=== PATIENT | male | born 1970 | race Caucasian/White ===

== ENCOUNTER 2023-06-25 17:32 | Emergency (ER) | payer OTHER, SELFPAY ==
--- NOTE | ~2023-06-25 | CT_ITS ---
EXAMINATION: CT ABDOMEN AND PELVIS WITHOUT CONTRAST CLINICAL INFORMATION: Abdominal pain, flank pain, kidney stones COMPARISON: None available. TECHNIQUE: Multidetector volumetric imaging was performed from the superior aspect of the liver through the pubic symphysis. Sagittal and coronal reformatted images were obtained on the technologist's workstation. This CT examination was performed using dose optimization techniques as appropriate, variously including the following: *Automated exposure control *Adjustment of mA and/or kV according to patient size (this includes techniques or standardized protocols for targeted exams where dose is matched to indication/reason for exam; i.e. extremities or head) *Use of iterative reconstruction technique DLP: 507 mGy-cm FINDINGS: LUNG BASES: The visualized lung bases are unremarkable. LIVER, GALLBLADDER, AND BILIARY TREE: The liver is normal in size, shape, and attenuation. No focal hepatic lesion or biliary ductal dilatation is present. The gallbladder is unremarkable with no evidence of radiopaque gallstones, gallbladder wall thickening, or obvious pericholecystic inflammatory changes. PANCREAS: Unremarkable. SPLEEN: Unremarkable. ADRENAL GLANDS: Unremarkable. KIDNEYS AND URETERS: The bilateral kidneys are normal in size shape and attenuation. There is mild right hydronephrosis and hydroureter secondary to a passed calculus which is just distal to the UVJ. This calculus measures 3 to 4 mm. Additionally, there are nonobstructing calculi in the bilateral kidneys which are punctate in the right upper pole and measuring 7 mm in the left lower pole. BLADDER: Decompressed. Past calculus near the right UVJ. GASTROINTESTINAL TRACT: The small and large bowel are unremarkable. The appendix is unremarkable. ABDOMINAL WALL: Tiny fat-containing umbilical hernia. LYMPH NODES: Normal. VASCULAR: Unremarkable. PELVIC VISCERA: Unremarkable. OSSEOUS STRUCTURES: Unremarkable. CT/CT abdomen pelvis wo IV con IMPRESSION: 1. Mild right hydronephrosis and hydroureter secondary to a passed calculus which is just distal to the UVJ. This calculus measures 3 to 4 mm. 2. Bilateral nonobstructing renal calculi. Fleischner guidelines were followed.
[2023-06-25 18:06] VITALS: BP 126/80; PULSE 77; RESP 20; TEMP 36.1; O2SAT 98; BMI 25.1
--- NOTE | 2023-06-25 18:09 | ED.GENADULT ---
HPI - General Adult General Chief complaint: Urogenital-Male Stated complaint: blood in urine, possible kidney stone Time Seen by Provider: 06/25/23 18:28 Source: patient and old records reviewed Mode of arrival: ambulatory Limitations: no limitations History of Present Illness HPI narrative: 52 yo male with PMH of h pylori and gastritis currently on treatment - reports prior lipoma surgery as well as recent dx of bilateral renal stones but no obstruction/hydronephrosis or ureteral stone seen on [facility] CT scan 06/19. His visit was done for abdominal pain. He presents today with c/o R flank pain n/v and hematuria. No fevers. MD complaint: flank pain hematuria Onset (ago): day(s) (this AM) Location: abdomen (flank) and right Radiation: non-radiation and back Severity: severe Quality: stabbing Pain Consistency: intermittent Relieving factors: none Exacerbating factors: none Associated symptoms: nausea/vomiting and other (hematuria) Treatments prior to arrival: none Related Data Previous Rx's ?Medication ?Instructions ?Recorded ondansetron 4 mg disintegrating 4 mg PO Q8H PRN nausea and 06/25/23 tablet vomiting #20 tabs tamsulosin 0.4 mg capsule 0.4 mg PO DAILY 5 days #5 caps 06/25/23 Allergies Allergy/AdvReac Type Severity Reaction Status Date / Time No Known Allergies Allergy Verified 06/25/23 18:08 Review of Systems Review of Systems: Constitutional : No Fever, No Chills ENT/Mouth : No sore throat Eyes: No Eye Pain, No Swelling, No Redness Cardiovascular : No Chest Pain, No SOB Respiratory : No Cough, No Sputum, No Wheezing Gastrointestinal : positive Nausea, positive Vomiting, No Diarrhea, positive abdominal pain Genitourinary : positive Dysuria, positive urinary frequency, positive Hematuria, positive Flank Pain Musculoskeletal : No joint pain, No Myalgias Skin : No Skin Lesions, No rash Neuro : No Weakness, No Numbness, No Headache Psych : No Anxiety/Panic, No Depression Heme/Lymph: No Bruising, No Lymphadenopathy Endocrine : No Polyuria, No Polydipsia All other systems reviewed and are negative [facility] Past Medical History Attestation statement: The following information was validated with the patient. Source: old records reviewed Medical History H. pylori infection Gastritis Social History Social History (Updated 06/25/23 @ 19:05 by Gina Anderson DO) Patient Tobacco Use Status: Tobacco use Unknown Advance Directives: No Advance Directives Information Provided: Yes Physical Exam ED Vital Signs: Vital Signs - 24 hr 06/25/23 18:06 06/25/23 18:50 06/25/23 20:16 Temperature 96.9 F 97.8 F 97.9 F Pulse Rate 77 72 81 Respiratory Rate 20 20 16 Blood Pressure 126/80 141/87 H 129/80 Pulse Oximetry 98 99 99 Oxygen Delivery Method Room Air Room Air Room Air BMI result Body Mass Index 25.1 Appearance: Alert. Oriented X3. No acute distress. Eyes: Pupils equal, round and reactive to light. ENT: Pharynx normal. Neck: Normal inspection. Neck supple. CVS: Normal heart rate and rhythm. Pulses normal. Respiratory: No respiratory distress. Breath sounds normal. Abdomen: Soft and mild R CVA ttp Skin: Skin warm and dry. Normal skin color. Normal skin turgor. Extremities: No lower extremity edema. Neuro: Oriented X 3. No motor deficit. No sensory deficit. Course Course Course Narrative: RME: 52-year-old male presents to ED for right flank pain. Patient has known kidney stones. Kidney stone [facility] at [facility]. Patient complains of hematuria. Patient has severe pain labs pain medication imaging ordered. Discussed this charge nurse to bring patient to the ED. Reevaluation(s) Reevaluation #1: accidentally discharged in error brought back for UA sample Dr. Epstein will follow up on it. Medications Administered Discontinued Medications Generic Name Dose Route Start Last Admin Trade Name Freq PRN Reason Stop Dose Admin Sodium Chloride 1,000 mls @ 999 mls/hr 06/25/23 18:07 06/25/23 20:16 Ns IV 06/25/23 19:07 Infused .Q1H1M STA Infusion Ketorolac Tromethamine 30 mg 06/25/23 18:07 06/25/23 18:12 Ketorolac Tromethamine 30 Mg/Ml Vial IM 06/25/23 18:08 30 mg ONCE ONE Administration Morphine Sulfate 4 mg 06/25/23 18:07 06/25/23 18:37 Morphine Sulfate 4 Mg/Ml Cartridge IVPUSH 06/25/23 18:08 4 mg ONCE ONE Administration Protocol Ondansetron HCl 4 mg 06/25/23 18:20 06/25/23 18:37 Ondansetron Hcl 4 Mg/2 Ml Vial IVPUSH 06/25/23 18:21 4 mg ONCE ONE Administration Medical Decision Making Medical Decision Making [facility] Narrative: 52 yo male with PMH of renal stones known L 4mm and R 2mm here with c/o abrupt onset R flank pain n/v and hematuria today at this time will need basic labs, UA and IV morphine/toradol ordered. UA and repeat imaging planned to see if stone has moved and patient is obstructed. Differential Diagnosis Differential Diagnoses: The differential diagnosis associated with the presentation includes renal colic, strain Admission/Observation Consideration of admission/observation: Escalation of care including admission/observation considered labs stable, passed stone, pain improved Lab Data [facility] Lab Attestation statement: I reviewed the patient's lab results. 06/25/23 18:29 06/25/23 18:29 Labs: Lab Results 06/25/23 Range/Units 18:29 WBC 9.2 (4.8-10.8) X10*3/uL RBC 5.06 (4.60-5.80) X10*6/uL Hgb 15.6 (14.0-18.0) g/dl Hct 46.2 (42.0-52.0) % MCV 91.3 (80.0-98.0) fL MCH 30.8 (27.0-33.0) pg MCHC 33.8 (31.0-36.0) g/dl RDW 13.2 (11.0-16.0) % Plt Count 289 (160-400) X10*3/uL MPV 10.1 (9.4-12.4) fL Immature Gran % (Auto) 0.8 H (0.0-0.4) % Neut % (Auto) 68.2 (45-73) % Lymph % (Auto) 20.9 (20-40) % Casey % (Auto) 8.6 (2-11) % Eos % (Auto) 1.1 (0-4) % Baso % (Auto) 0.4 (0-2) % Lymph # (Auto) 1.9 (1.2-4.9) X10*3/uL Casey # (Auto) 0.8 (0.1-1.2) X10*3/uL Eos # (Auto) 0.1 (0.0-0.4) X10*3/uL Baso # (Auto) 0.0 (0.0-0.2) X10*3/uL Abs Immat Gran (auto) 0.07 H (0.00-0.03) X10*3/uL Absolute Neuts (auto) 6.2 (2.0-8.3) x10*3/uL Absolute Nucleated RBC 0.000 (0.0-0.012) X10*3/uL Nucleated RBC % (auto) 0.0 (0.0-0.2) /100WBC Sodium 141 (135-145) mmol/L Potassium 3.6 (3.3-5.1) mmol/L Chloride 107 (96-108) mmol/L Carbon Dioxide 26 (22-29) mmol/L Anion Gap 12 (12-20) BUN 13 (9-16) mg/dL Creatinine 1.06 (0.5-1.4) mg/dL Estim Creat Clear Calc 84.8 Estimated GFR > 60 Random Glucose 194 H (60-115) mg/dL Calcium 9.1 (8.4-10.2) mg/dL Total Bilirubin 0.5 (0.0-1.0) mg/dL AST 23 (5-37) U/L ALT 22 (0-40) U/L Alkaline Phosphatase 104 (39-117) U/L Total Protein 6.9 (6.5-8.0) g/dL Albumin 3.8 (3.5-5.0) g/dL Independent Interpretation I performed an independent interpretation of an: CT Scan (passed stone) Radiology Impression Discussion of test interpretation with radiology: I have reviewed the radiologist's reading. Independent Historian Clinical information obtained from an independent historian. History obtained from or confirmed by: Friend External Record Review External record reviewed: Outpatient record and Prior outpatient radiology Critical Care Time Critical Care Time Critical Care Time: Yes Total Critical Care Time: 35 Attestation: pain improved with IV morphine, review of outside records I attest to this time spent taking care of the patient Discharge Plan Discharge Clinical Impression: Bilateral renal colic Patient Disposition: Home, Self-Care Instructions: Renal Colic (ED) Additional Instructions: you passed a stone on the right side. you still have L sided kidney stones you need to see your doctor at [facility] to get referral to urologist or see our urologist. Please call to schedule appointment. stay hydrated drink plenty of fluids. return for worsening pain, fevers, vomiting or any other concerns. Prescriptions: New ondansetron 4 mg tablet,disintegrating 4 mg PO Q8H PRN (Reason: nausea and vomiting) Qty: 20 0RF tamsulosin 0.4 mg capsule 0.4 mg PO DAILY 5 Days Qty: 5 0RF Referrals: Finn Meyer MD [Physician] - (our urologist can follow up and make appointment or go to [facility]) Stand Alone Forms: Work/School Release Interventions: ED Discharge Assessment Last Done: 06/25/23 20:16 Print Language: Egyptian
[2023-06-25] MEDS: Ketorolac Tromethamine 30 MG/ML VIAL IM (18:12)
[2023-06-25 18:34] LABS: MANUAL DIFF FLAG NO
[2023-06-25] MEDS: ondansetron HCL 4 MG/2 ML VIAL IVPUSH (18:37)
[2023-06-25] MEDS: 0.9 % Sodium Chloride 1,000 ML 999 ML IV (18:37)
[2023-06-25] MEDS: Morphine Sulfate 4 MG/ML CARTRIDGE IVPUSH (18:37)
[2023-06-25 18:48] LABS: Alanine Aminotransferase 22 U/L (0-40); Albumin Level 3.8 g/dL (3.5-5.0); Alkaline Phosphatase 104 U/L (39-117); Anion Gap 12 (12-20); Aspartate Amino Transferase 23 U/L (5-37); Bilirubin Total 0.5 mg/dL (0.0-1.0); Blood Urea Nitrogen 13 mg/dL (9-16); Calcium 9.1 mg/dL (8.4-10.2); Carbon Dioxide 26 mmol/L (22-29); Chloride 107 mmol/L (96-108); Creatinine Clr Calc Pharmacy 84.8; Estimated Glomerular Filt Rate > 60; Glucose Random 194 mg/dL (60-115); Potassium 3.6 mmol/L (3.3-5.1); Sodium 141 mmol/L (135-145); Total Protein 6.9 g/dL (6.5-8.0)
[2023-06-25 18:50] VITALS: BP 141/87; PULSE 72; RESP 20; TEMP 36.6; O2SAT 99
[2023-06-25 18:51] LABS: Basophils Percent Auto 0.4 % (0-2); Eosinophils Absolute Auto 0.1 X10*3/uL (0.0-0.4); Eosinophils Percent Auto 1.1 % (0-4); Hematocrit 46.2 % (42.0-52.0); Hemoglobin 15.6 g/dl (14.0-18.0); Imm Gran Abs Auto 0.07 X10*3/uL (0.00-0.03); Imm Gran Pct Auto 0.8 % (0.0-0.4); Lymphocytes Absolute Auto 1.9 X10*3/uL (1.2-4.9); Lymphocytes Percent Auto 20.9 % (20-40); Mean Corpuscular HGB Conc 33.8 g/dl (31.0-36.0); Mean Corpuscular Hemoglobin 30.8 pg (27.0-33.0); Mean Corpuscular Volume 91.3 fL (80.0-98.0); Mean Platelet Volume 10.1 fL (9.4-12.4); Monocytes Absolute Auto 0.8 X10*3/uL (0.1-1.2); Monocytes Percent Auto 8.6 % (2-11); Neutrophils Absolute Auto 6.2 x10*3/uL (2.0-8.3); Neutrophils Percent Auto 68.2 % (45-73); Platelet Count 289 X10*3/uL (160-400); Red Blood Count 5.06 X10*6/uL (4.60-5.80); Red Cell Distribution Width 13.2 % (11.0-16.0); White Blood Count 9.2 X10*3/uL (4.8-10.8)
--- NOTE | 2023-06-25 19:00 | PC.NURSE ---
IV established, labs obtained and sent. medicated per the MAR - fluids infusing. will re-attempt ct scan pending medications
[2023-06-25 20:16] VITALS: BP 130/77; PULSE 75; RESP 18; TEMP 36.5; O2SAT 99
--- NOTE | 2023-06-25 20:50 | PC.NURSE ---
patient awake and alert. skin pwd, resp even and non labored, speaking in full, clear sentences. reports flank pain is improved. aware of need for urine sample.
[2023-06-25 22:03] LABS: Appearance Urine Cloudy; Color Urine Orange; Glucose Urine UA Negative (Negative); Leukocyte Esterase Urine Small (1+) (Negative); Nitrite Urine Negative (Negative); PH 5.5 (5.0-9.0); Specific Gravity - Urine 1.015 (1.005-1.025); UMIC TRIGGER UACC YES; Urine Blood Large (3+) (Negative); Urine Ketones Trace mg/dL (Negative); Urine Protein 100 (2+) mg/dL (Neg-Trace)
[2023-06-25 22:05] LABS: Bacteria Urine None Seen (None Seen); Calcium Oxalate Crystals Urine Present; RBC Urine >20 /HPF (0-2); Squamous Epithelial Cell Urine 0-2 /HPF (0-2); UACC Culture Trigger YES
[2023-06-25] MEDS: cefuroxime axetiL 250 MG TABLET PO (22:32)
[2023-06-25] MEDS: Calcium Carbonate 750 MG TAB.CHEW PO (22:49)
[2023-06-25 23:01] VITALS: BP 130/77; PULSE 75; RESP 18; TEMP 36.5; O2SAT 99
== END 2023-06-25 23:01 | disposition home or self-care (01) ==
PROVIDERS: Physician Assistant; Emergency Provider Emergency Medicine; PCP Internal Medicine
DX: N23 Unspecified renal colic (principal); Z87.442 Personal history of urinary calculi
CPT/HCPCS: 36415; 74176; 80053; 81001; 81003; 85025; 87086; 96361; 96372; 96374; 96375; 99284; 99285; J1885; J2270; J2405

== ENCOUNTER 2024-04-29 01:00 | Emergency (ER) | payer OTHER, SELFPAY ==
--- NOTE | ~2024-04-29 | CT_ITS ---
EXAMINATION: CT ABDOMEN PELVIS WITHOUT IV CONTRAST HISTORY: left flank pain, hx stones COMPARISON: Comparison is made with the prior examination dated 06/25/2023. TECHNIQUE: CT scan of the abdomen and pelvis was performed without contrast using standard departmental protocol. Coronal and sagittal reformatted images were generated and reviewed. Oral contrast material was not administered per department protocol. This CT exam was performed with one or more of the following dose reduction techniques: automated exposure control, adjustment of the mA and/or kV according to patient size, use of iterative reconstruction technique. DLP: 443 mGy-cm FINDINGS: LOWER CHEST: The visualized lung bases are clear. There is no pleural effusion. CARDIOVASCULATURE: The heart is normal in size. There is no pericardial effusion. LIVER: The liver is normal in size and contour. The liver has an unremarkable unenhanced appearance. GALLBLADDER / BILE DUCTS: The gallbladder is unremarkable. There is no intra or extrahepatic biliary ductal dilatation. SPLEEN: The spleen is normal in size and has an unremarkable unenhanced appearance. PANCREAS: The pancreas has an unremarkable unenhanced appearance. ADRENAL GLANDS: Unremarkable. KIDNEYS/RETROPERITONEUM: There is a punctate nonobstructing calculus at the upper pole of the right kidney. There is a 6 mm nonobstructing calculus at the lower pole of the left kidney. There is no hydronephrosis or hydroureter. No ureteral calculi are identified. LYMPH NODES: No retroperitoneal lymphadenopathy is identified in the abdomen or pelvis. VASCULATURE: The abdominal aorta is normal in caliber. MESENTERY/PERITONEUM: No free fluid. No masses. There is no free intraperitoneal gas. STOMACH: There is a moderate hiatal hernia. SMALL BOWEL: The small bowel is normal in caliber. COLON: There is diffuse colonic diverticulosis without evidence of diverticulitis. There is a large amount of stool throughout the colon. APPENDIX: Normal. URINARY BLADDER/PELVIC ORGANS: The urinary bladder is unremarkable. The prostate is normal in size. BONES / SOFT TISSUES: No suspicious bony or soft tissue abnormalities. CT/CT abdomen pelvis wo IV con IMPRESSION: 1. Bilateral nephrolithiasis as described, without evidence of ureteral obstruction. 2. Moderate hiatal hernia. 3. Colonic diverticulosis without evidence of diverticulitis. Large amount of stool throughout the colon. Electronically signed by: Deven Davila MD 04/29/2024 09:43 AM EST
[2024-04-29 01:08] VITALS: BP 125/82; PULSE 74; RESP 16; TEMP 36.6; O2SAT 98; BMI 25.9
[2024-04-29 01:29] LABS: Basophils Percent Auto 0.5 % (0-2); Eosinophils Absolute Auto 0.2 X10*3/uL (0.0-0.4); Eosinophils Percent Auto 2.4 % (0-4); Hemoglobin 15.7 g/dl (14.0-18.0); Imm Gran Abs Auto 0.02 X10*3/uL (0.00-0.03); Imm Gran Pct Auto 0.2 % (0.0-0.4); Lymphocytes Absolute Auto 3.2 X10*3/uL (1.2-4.9); Lymphocytes Percent Auto 36.4 % (20-40); MANUAL DIFF FLAG NO; Mean Corpuscular HGB Conc 33.4 g/dl (31.0-36.0); Mean Corpuscular Hemoglobin 30.7 pg (27.0-33.0); Mean Platelet Volume 9.9 fL (9.4-12.4); Monocytes Absolute Auto 1.1 X10*3/uL (0.1-1.2); Monocytes Percent Auto 12.4 % (2-11); Neutrophils Absolute Auto 4.2 x10*3/uL (2.0-8.3); Neutrophils Percent Auto 48.1 % (45-73); Platelet Count 261 X10*3/uL (160-400); Red Blood Count 5.11 X10*6/uL (4.60-5.80); Red Cell Distribution Width 13.3 % (11.0-16.0); White Blood Count 8.8 X10*3/uL (4.8-10.8)
[2024-04-29 01:53] LABS: Alanine Aminotransferase 19 U/L (0-40); Albumin Level 3.9 g/dL (3.5-5.0); Alkaline Phosphatase 90 U/L (39-117); Anion Gap 10 (12-20); Aspartate Amino Transferase 16 U/L (5-37); Bilirubin Total 0.3 mg/dL (0.0-1.0); Blood Urea Nitrogen 17 mg/dL (9-16); Carbon Dioxide 24 mmol/L (22-29); Chloride 113 mmol/L (96-108); Creatinine Clr Calc Pharmacy 86.3; Estimated Glomerular Filt Rate > 60; Glucose Random 104 mg/dL (60-115); Potassium 4.4 mmol/L (3.3-5.1); Sodium 143 mmol/L (135-145)
[2024-04-29 04:44] VITALS: BP 107/65; PULSE 66; RESP 18; TEMP 36.2; O2SAT 98
[2024-04-29 05:23] LABS: Appearance Urine Clear; Color Urine Yellow; Glucose Urine UA Negative (Negative); Leukocyte Esterase Urine Negative (Negative); Nitrite Urine Negative (Negative); PH 5.5 (5.0-9.0); Specific Gravity - Urine 1.025 (1.005-1.025); Urine Blood Negative (Negative); Urine Ketones Negative (Negative); Urine Protein Negative (Neg-Trace)
[2024-04-29 05:28] LABS: Bacteria Urine None Seen (None Seen); Hyaline Casts Urine 0-2 /LPF (0-2); RBC Urine 0-2 /HPF (0-2); Squamous Epithelial Cell Urine 0-2 /HPF (0-2); WBC Urine 0-5 /HPF (0-5)
[2024-04-29 06:00] VITALS: BP 108/75; PULSE 69; RESP 16; TEMP 36.5; O2SAT 99
--- NOTE | 2024-04-29 06:47 | ED_ITS ---
HPI - General Adult General Chief complaint: General Medical Stated complaint: kidney pain Time Seen by Provider: 04/29/24 06:42 Source: patient and certified court interpreter ([facility] [place] german) Mode of arrival: ambulatory Limitations: language barrier (german) History of Present Illness ED Provider: HARRIS WOODS PA-C HPI narrative: 53 year old Dutch speaking male with pmhx significant for gastritis and nephrolithiasis presents to the ED today for evaluation of left lower back pain x2 years. Reports pain is more prominent after he returns home from work. 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 Pain is worse with movement. No radiation Denies trauma/ injury to the back. No hx of IVDU. No hx of spinal surgery. He has not trialed any OTC pain medications for this. He does endorse history of renal stones to left kidney. He has since followed with urology. These stones did not require removal via shockwave therapy or surgery. He denies any urine symptoms. Denies fever, chills, N/V, abd pain, constipation, diarrhea. Related Data Previous Rx's ?Medication ?Instructions ?Recorded cefuroxime axetil 250 mg tablet 250 mg PO BID #19 tabs 06/25/23 ondansetron 4 mg disintegrating 4 mg PO Q8H PRN nausea and 06/25/23 tablet vomiting #20 tabs tamsulosin 0.4 mg capsule 0.4 mg PO DAILY 5 days #5 caps 06/25/23 docusate sodium 100 mg capsule 100 mg PO DAILY #10 caps 04/29/24 (Dulcolax Stool Softener (docusate)) lidocaine 5 % topical patch 1 patch topical DAILY #15 ea 04/29/24 (Lidoderm) polyethylene glycol 3350 17 gram 17 g PO DAILY PRN constipation #14 04/29/24 oral powder packet (Miralax) ea Allergies Allergy/AdvReac Type Severity Reaction Status Date / Time No Known Allergies Allergy Verified 04/29/24 01:10 Review of Systems 2 Review of Systems: Constitutional: No fever, chills, fatigue, night sweats, weight changes ENT/Mouth: No ear pain, hearing loss, nasal congestion, sinus pain, rhinorrhea, sore throat Eyes: No eye pain, swelling, redness, vision changes, discharge Cardio: No chest pain, palpitations, MOREIRA, orthopnea, peripheral edema Pulm: No SOB, cough, sputum, wheezing, dyspnea, hemoptysis GI: No nausea, vomiting, hematemesis, abdominal pain, diarrhea, constipation, hematochezia, melena : No irregular bleeding, dysuria, frequency, urgency, hesitancy, hematuria, flank pain, urinary flow changes, urinary incontinence or retention MSK: No neck pain, joint pain, myalgias, +back pain Skin: No lesions, rashes Neuro: No weakness, numbness, paresthesias, LOC, dizziness, headache Psych: No anxiety/panic, depression, SI/HI, AH/VH All other systems reviewed and are negative. [facility] Past Medical History Attestation statement: The following information was validated with the patient. Source: old records reviewed and nursing notes reviewed Medical History H. pylori infection Gastritis Social History Social History Patient Tobacco Use Status: Tobacco use Unknown Advance Directives: No Advance Directives Information Provided: Yes Do you have a plan to hurt others: No Plan Physical Exam ED Vital Signs: Vital Signs - 24 hr 04/29/24 01:08 04/29/24 04:44 04/29/24 06:00 Temperature 97.8 F 97.2 F 97.7 F Pulse Rate 74 66 69 Respiratory Rate 16 18 16 Blood Pressure 125/82 107/65 108/75 Pulse Oximetry 98 98 99 Oxygen Delivery Method Room Air Room Air Room Air 04/29/24 09:23 Temperature 98.4 F Pulse Rate 57 Respiratory Rate 18 Blood Pressure 113/78 Pulse Oximetry 98 Oxygen Delivery Method Room Air BMI result Body Mass Index 25.9 vital signs stable, afebrile General: Well appearing, in no acute distress. Skin: Warm, dry, intact. No rashes or lesions. Head: Normocephalic, atraumatic. EENT: Hearing is intact b/l. Conjunctiva clear. PERRLA. EOM intact. Moist mucous membranes.? Neck: Supple without LAD Cardiac: Chest wall symmetric. RRR. Lungs: Normal respiratory effort without accessory muscle use. CTA bilaterally. Abdomen: Soft, non-tender, non-distended. No rebound tenderness or guarding. Positive BS x4. no cvat. Back: +Tender to palpation along left lumbar paraspinal region. No palpable deformity, fluctuance. No midline spinous tenderness or step-off deformity. Ext: Upper and lower extremities atraumatic, without tenderness, deformity, swelling or erythema Neuro: AOx3. Normal speech.Strength 5/5 intact throughout. No saddle anesthesia. Sensation intact to light touch. NV intact distally. Ambulating with steady gait. Course Course Course Narrative: 1010 -- CBC without leukocytosis or left shift. No anemia. H&H stable. Chemistry without acute electrolyte abnormality requiring intervention. BUN slightly elevated to 17 however creatinine is WNL. No FIDELIA. Liver function at baseline. Urinalysis does not demonstrate infection or blood. CT abdomen/pelvis shows punctate nonobstructing calculus at the upper pole of the right kidney and a 6 mm nonobstructing calculus at the lower pole of the left kidney. There is no evidence of hydronephrosis or hydroureter. No ureteral calculi noted. Incidental finding of colonic diverticulosis without evidence of acute diverticulitis with large amount of stool throughout the colon. > given length of symptoms, left renal calculi likely not the cause of patient's current discomfort. his pain is not colicy and is worse with movement of the back with tenderness along the left lumbar paraspinal muscles rather than left CVA. there is no evidence of obstructing stone or hydro. will treat for musculoskeletal pain. He was given a dose of Toradol in the ED today with improvement in pain. Advised Tylenol/Motrin at home. Will also send lidocaine patches. > he is also quite constipated. advised miralax and colace which has been sent to the pharmacy. > regarding nephrolithiasis, advised to follow up with his urologist. I do not feel as though tamsulosin or prednisone is warranted at this time. Patient has remained stable throughout ED visit today. Discussed worrisome signs and symptoms and when to return to the ED. All questions answered at this time. Patient is agreeable with disposition and stable for discharge. Medications Administered Discontinued Medications Generic Name Dose Route Start Last Admin Trade Name Freq PRN Reason Stop Dose Admin Ketorolac Tromethamine 30 mg 04/29/24 07:59 04/29/24 08:36 Ketorolac Tromethamine 30 Mg/Ml Vial IM 04/29/24 08:00 30 mg ONCE ONE Administration Medical Decision Making Medical Decision Making [facility] Narrative: 53 year old Dutch speaking male with pmhx significant for gastritis and nephrolithiasis presents to the ED today for evaluation of left lower back pain x2 years. Vitals stable. Afebrile. He is nontoxic-appearing and in no acute distress. Lying comfortably on the exam bed. Exam is quite benign. Abdomen is soft, ND/NT, without rebound or guarding. there are normoactive BS. no cvat. on spinal exam, there is no midline spinous tenderness or step-off deformity. There is reproducible tenderness to palpation of left lumbar paraspinal muscle region without palpable deformity or fluctuance. CMS intact distally. Ambulating with steady gait. No back pain red flag symptoms. Differential diagnosis includes msk sprain/ strain, sciatica, UTI, renal colic, nephrolithiasis, hydronephrosis, constipation. Unlikely pyelonephritis, obstructive uropathy, cauda equina, Guillain-Gilberts, epidural abscess, cord compression. Plan for basic labs, urinalysis, CTA/P, pain control and re-evaluation. Differential Diagnosis Differential Diagnoses: The differential diagnosis associated with the presentation includes as above. Admission/Observation not indicated. Lab Data [facility] Lab Attestation statement: I reviewed the patient's lab results. as above. 04/29/24 01:23 04/29/24 01:23 Labs: Lab Results 04/29/24 04/29/24 Range/Units 01:23 05:11 WBC 8.8 (4.8-10.8) X10*3/uL RBC 5.11 (4.60-5.80) X10*6/uL Hgb 15.7 (14.0-18.0) g/dl Hct 47.0 (42.0-52.0) % MCV 92.0 (80.0-98.0) fL MCH 30.7 (27.0-33.0) pg MCHC 33.4 (31.0-36.0) g/dl RDW 13.3 (11.0-16.0) % Plt Count 261 (160-400) X10*3/uL MPV 9.9 (9.4-12.4) fL Immature Gran % (Auto) 0.2 (0.0-0.4) % Neut % (Auto) 48.1 (45-73) % Lymph % (Auto) 36.4 (20-40) % [place] % (Auto) 12.4 H (2-11) % Eos % (Auto) 2.4 (0-4) % Baso % (Auto) 0.5 (0-2) % Lymph # (Auto) 3.2 (1.2-4.9) X10*3/uL [place] # (Auto) 1.1 (0.1-1.2) X10*3/uL Eos # (Auto) 0.2 (0.0-0.4) X10*3/uL Baso # (Auto) 0.0 (0.0-0.2) X10*3/uL Abs Immat Gran (auto) 0.02 (0.00-0.03) X10*3/uL Absolute Neuts (auto) 4.2 (2.0-8.3) x10*3/uL Absolute Nucleated RBC 0.000 (0.0-0.012) X10*3/uL Nucleated RBC % (auto) 0.0 (0.0-0.2) /100WBC Sodium 143 (135-145) mmol/L Potassium 4.4 D (3.3-5.1) mmol/L Chloride 113 H (96-108) mmol/L Carbon Dioxide 24 (22-29) mmol/L Anion Gap 10 L (12-20) BUN 17 H (9-16) mg/dL Creatinine 1.03 (0.5-1.4) mg/dL Estim Creat Clear Calc 86.3 Estimated GFR > 60 Random Glucose 104 (60-115) mg/dL Calcium 9.0 (8.4-10.2) mg/dL Total Bilirubin 0.3 (0.0-1.0) mg/dL AST 16 (5-37) U/L ALT 19 (0-40) U/L Alkaline Phosphatase 90 (39-117) U/L Total Protein 7.0 (6.5-8.0) g/dL Albumin 3.9 (3.5-5.0) g/dL Urine Color Yellow Urine Appearance Clear Urine pH 5.5 (5.0-9.0) Ur Specific [place] 1.025 (1.005-1.025) Urine Protein Negative (Neg-Trace) mg/dL Urine Glucose (UA) Negative (Negative) mg/dL Urine Ketones Negative (Negative) mg/dL Urine Blood Negative (Negative) Urine Nitrite Negative (Negative) Ur Leukocyte Esterase Negative (Negative) Urine RBC 0-2 (0-2) /HPF Urine WBC 0-5 (0-5) /HPF Ur Squamous Epith Cells 0-2 (0-2) /HPF Urine Bacteria None Seen (None Seen) Hyaline Casts 0-2 (0-2) /LPF Independent Interpretation I performed an independent interpretation of an: CT Scan Interpretation: CT A/P showing b/l renal stones, no obvious ureteral stone Radiology Impression Discussion of test interpretation with radiology: I have reviewed the radiologist's reading. Radiologist Impression: Procedure(s): CT abdomen pelvis wo IV con Accession Number(s): [id number] cc: Physician,Unknown ; Harris Woods~ Report Number: [id number]: Total DLP = 443.00 mGy-cm EXAMINATION: CT ABDOMEN PELVIS WITHOUT IV CONTRAST HISTORY: left flank pain, hx stones COMPARISON: Comparison is made with the prior examination dated 06/25/2023. TECHNIQUE: CT scan of the abdomen and pelvis was performed without contrast using standard departmental protocol. Coronal and sagittal reformatted images were generated and reviewed. Oral contrast material was not administered per department protocol. This CT exam was performed with one or more of the following dose reduction techniques: automated exposure control, adjustment of the mA and/or kV according to patient size, use of iterative reconstruction technique. DLP: 443 mGy-cm FINDINGS: LOWER CHEST: The visualized lung bases are clear. There is no pleural effusion. CARDIOVASCULATURE: The heart is normal in size. There is no pericardial effusion. LIVER: The liver is normal in size and contour. The liver has an unremarkable unenhanced appearance. GALLBLADDER / BILE DUCTS: The gallbladder is unremarkable. There is no intra or extrahepatic biliary ductal dilatation. SPLEEN: The spleen is normal in size and has an unremarkable unenhanced appearance. PANCREAS: The pancreas has an unremarkable unenhanced appearance. ADRENAL GLANDS: Unremarkable. KIDNEYS/RETROPERITONEUM: There is a punctate nonobstructing calculus at the upper pole of the right kidney. There is a 6 mm nonobstructing calculus at the lower pole of the left kidney. There is no hydronephrosis or hydroureter. No ureteral calculi are identified. LYMPH NODES: No retroperitoneal lymphadenopathy is identified in the abdomen or pelvis. VASCULATURE: The abdominal aorta is normal in caliber. MESENTERY/PERITONEUM: No free fluid. No masses. There is no free intraperitoneal gas. STOMACH: There is a moderate hiatal hernia. SMALL BOWEL: The small bowel is normal in caliber. COLON: There is diffuse colonic diverticulosis without evidence of diverticulitis. There is a large amount of stool throughout the colon. APPENDIX: Normal. URINARY BLADDER/PELVIC ORGANS: The urinary bladder is unremarkable. The prostate is normal in size. BONES / SOFT TISSUES: No suspicious bony or soft tissue abnormalities. CT/CT abdomen pelvis wo IV con IMPRESSION: 1. Bilateral nephrolithiasis as described, without evidence of ureteral obstruction. 2. Moderate hiatal hernia. 3. Colonic diverticulosis without evidence of diverticulitis. Large amount of stool throughout the colon. Independent Historian Clinical information obtained from an independent historian. History obtained from or confirmed by: Spouse External Record Review External record reviewed: Inpatient record Prescription Management I considered prescription management with: Pain Medication and Other (MiraLax, Colace) Chronic Conditions Patient?s care impacted by: Other (nephrolithiasis) Social Determinants Patient?s care significantly limited by Social Determinants of Health including: Other Social Determinant of Health Critical Care Time Critical Care Time Critical Care Time: No Discharge Plan Discharge Clinical Impression: Bilateral nephrolithiasis, Constipation Patient Disposition: Home, Self-Care Instructions: Constipation (ED), Renal Colic (ED) Additional Instructions: Your blood work today is reassuring. Your urine does not demonstrate blood or infection. The CT scan of your abdomen shows nonobstructing stones in both right and left kidneys. I recommend you take 600mg ibuprofen every 6 hours or Tylenol 650mg every 6 hours as needed for pain. If needed, you can alternate these medications so that you take one medication every 3 hours. For example, at noon take ibuprofen, then at 3pm take Tylenol, then at 6pm take ibuprofen. I have also sent lidocaine patches to your pharmacy that you may apply to the area every 12 hours. Please follow up with your urologist. If you do not have 1, a referral has been provided. Please call them to establish care. They will not call you. The scan also shows significant stool burden in the colon. There is no evidence of obstruction. I recommend using stool softeners such as colace 100mg twice daily. Take the prescribed laxative (MiraLax) as directed. You may try milk of magnesia as well. Follow up with your doctor in 2 weeks. Return with new or worsening symptoms. In the case of an emergency call 911. Prescriptions: New polyethylene glycol 3350 [Miralax] 17 gram powder in packet 17 g PO DAILY PRN (Reason: constipation) Qty: 14 0RF docusate sodium [Dulcolax Stool Softener (dss)] 100 mg capsule 100 mg PO DAILY Qty: 10 0RF lidocaine [Lidoderm] 5 % adhesive patch,medicated 1 patch topical DAILY Qty: 15 0RF Rx Instructions: leave on most painful area for up to 12 hrs No Action ondansetron 4 mg tablet,disintegrating 4 mg PO Q8H PRN (Reason: nausea and vomiting) Qty: 20 0RF tamsulosin 0.4 mg capsule 0.4 mg PO DAILY 5 Days Qty: 5 0RF cefuroxime axetil 250 mg tablet 250 mg PO BID Qty: 19 0RF Referrals: [facility] [place] Urology Services [Provider Group] (6mm renal stone) Stand Alone Forms: Work/School Release Print Language: Dutch
[2024-04-29] MEDS: Ketorolac Tromethamine 30 MG/ML VIAL IM (08:36)
[2024-04-29 09:23] VITALS: BP 113/78; PULSE 57; RESP 18; TEMP 36.9; O2SAT 98
[2024-04-29 11:04] VITALS: BP 113/78; PULSE 57; RESP 18; TEMP 36.9; O2SAT 98
== END 2024-04-29 11:26 | disposition home or self-care (01) ==
PROVIDERS: Emergency Provider Emergency Medicine
DX: N20.0 Calculus of kidney (principal); K59.00 Constipation, unspecified; Z79.899 Other long term (current) drug therapy
CPT/HCPCS: 36415; 74176; 80053; 81001; 85025; 96372; 99284; J1885

== ENCOUNTER → 2024-04-29 07:59 | Outpatient (BNV) | payer OTHER, SELFPAY | PROVIDERS: Emergency Provider Emergency Medicine; Visit Provider Radiology Diagnostic Radiology | DX: N20.0 Calculus of kidney (principal); K57.90 Diverticulosis of intestine, part unspecified, without perforation or abscess without bleeding | CPT/HCPCS: 74176 ==

== ENCOUNTER 2024-06-24 15:19 | Outpatient (REF) | payer OTHER, SELFPAY ==
[2024-06-24 17:03] LABS: Urine Cytology See Pathology rpt
--- OUTSIDE RECORDS SUMMARY | 2024-06-24 19:01 | XMS_ITS | Clinical Summary ---
Author Organization [facility] it Address [address] [place] [address] Care Team Providers Care Software Developer Consultant Name Role Phone Elisa Mann MD Primary Care Provider [phone] Surgical History Surgery Date Site/Laterality Comments OTHER SURGICAL HISTORY PROCEDURE: DENIES PREVIOUS SURGERY COLONOSCOPY 09/27/2021 PROCEDURE: HISTORICAL COLONOSCOPY; COMMENT: hyperplastic polyp ESOPHAGOGASTRODUODENOSCOPY 02/02/2022 PROCEDURE: [place] EGD TRANSORAL BIOPSY SINGLE/MULTIPLE; COMMENT: hiatal hernia, [...] age to complete this topic Care Teams Software Developer Consultant Relationship Specialty Start Date End Date Elisa Mann MD PCP - General Internal Medicine 02/02/21
== END 2024-06-24 15:20 | disposition home or self-care (01) ==
LOC: HO.LNP 15:19
PROVIDERS: Visit Provider Nurse Practitioner Family
DX: N20.0 Calculus of kidney (principal); R10.9 Unspecified abdominal pain
CPT/HCPCS: 81003; 88112; 99202

== ENCOUNTER 2024-06-24 15:19 | Outpatient (AMB) | payer OTHER, SELFPAY ==
--- NOTE | 2024-06-24 15:23 | A.OFFVIS_ITS ---
Intake Visit Reasons: bilateral nephrolithiasis Intake Note: New Patient presents for initial visit for bilateral nephrolithiasis Urology Medications: none Blood Thinner: none Ship Boss Required: Yes Ship Boss Name: [id number] Accompanied by: Unknown Allergies No Known Allergies Allergy (Verified 06/24/24 16:14) Medication List - Last Reconciled 06/24/24 by CAITLIN Lemus No Known Home Meds HPI Comments Details: Yariel is a very pleasant 53-year-old Japanese-speaking male patient. He has a past medical history of H pylori and gastritis. He presents to the office today as a new patient for nephrolithiasis. In discussion with the patient today he reports a longstanding history of nephrolithiasis previously following up with urologist in [place] however does not recall name and or location. He discusses having recently seeked emergency room care here at [facility] at which time he was diagnosed with nephrolithiasis and recommendations were made for urology referral for further assessment evaluation. The CT results were reviewed with the patient today 05/13 there is a punctate nonobstructing calculus at the upper pole of the right kidney. There is a 6 mm nonobstructing calculus at the lower pole of the left kidney. There is no hydronephrosis noted bilaterally. When asked he does continue to report ongoing left-sided flank pain. We discussed further treatment options to include left-sided ESWL verses surveillance monitoring. Risks and benefits of these interventions were discussed. He otherwise denies any bothersome urinary issues. He denies urinary urgency, urinary frequency, incontinence, nocturia, hematuria, dysuria, foul smelling urine, changes to urinary stream, fever, and or chills. He is happy with his current voiding parameters. Plan Based on the evaluation of the ongoing nephrolithiasis with associated left renal colic, I offer the patient lithotripsy to manage his 6 mm stone on the left side, given its persistent symptoms. A detailed pamphlet on the procedure was provided. Preoperative clearance and insurance authorization are needed prior to scheduling on our noted procedural days. Preventative strategies emphasizing increased hydration were discussed. Patient was informed and verbally consented to the use of an ambient scribe for clinic note documentation during this visit. Discussion Notes During the visit, I discussed with the patient the presence of a 6 mm calculi on the left side, contributing to his symptoms. We reviewed the possibility of extracorporeal shock wave lithotripsy (lithotripsy) under anesthesia as a treatment option exceeding the natural passing of stones due to substantial pain. I detailed the procedural process, risks such as reaction to anesthesia, and postoperative expectations, and provided a pamphlet for further reading. I emphasized the significance of adequate hydration for stone prevention and addressed lifestyle adjustments to promote health, such as reduced consumption of alcohol and increasing water intake. Scheduling the procedure would require insurance authorization and preoperative clearance. [facility] Medical History H. pylori infection Gastritis Social History Patient Tobacco Use Status: Tobacco use Unknown Review of Systems Const All systems reviewed & are unremarkable except as noted in HPI and below Physical Exam Const General: cooperative, healthy appearing, comfortable, no acute distress, well developed, alert and awake Nutritional Appearance: average body habitus Orientation/consciousness: patient oriented x3 Limitations: language barrier HEENT Head: Yes normal to inspection, Yes normocephalic and Yes atraumatic Ears: hearing grossly normal bilaterally Eyes General: appearance normal, both eyes and all related structures Neck Neck: Yes normal visual inspection and Yes trachea midline Chest Chest palpation & inspection: normal inspection of the chest Resp Effort & Inspection: normal respiratory effort and able to speak in complete sentences Cardio Rate: regular rate GI Inspection: Yes normal to inspection General: Yes no CVA tenderness Back/Spine/Pelvis Back: no CVA tenderness Skin General skin exam: no rashes or lesions noted Neuro General: patient oriented x3 Extrem General: Yes normal to inspection Psych Appearance: grossly normal and well kempt Mental Status: mental status grossly normal Speech and movement: Normal speech and movement present and Clear speech present Affect: normal affect Attitude: cooperative Thought process: Normal thought process present Thought content: Normal thought content present Results AMB Urinalysis, Automated UA Leukoctes 0 Iban/uL Last Edit by Homar Robertson on 06/24/24 15:48 UA Nitrite Last Edit by Homar Robertson on 06/24/24 15:48 UA Urobilinogen 0.2 mg/dL Last Edit by Homar Robertson on 06/24/24 15:48 UA Protein 15 mg/dL Last Edit by Homar Robertson on 06/24/24 15:48 UA pH 6.0 Last Edit by Homar Robertson on 06/24/24 15:48 UA Blood 25 Tapan/uL Last Edit by Homar Robertson on 06/24/24 15:48 UA Specific [place] 1.030 Last Edit by Homar Robertson on 06/24/24 15:48 UA Ketone Last Edit by Homar Robertson on 06/24/24 15:48 UA Bilirubin 0 mg/dL Last Edit by Homar Robertson on 06/24/24 15:48 UA Glucose 0 mg/dL Last Edit by Homar Robertson on 06/24/24 15:48 Results Reviewed Results Reviewed: Laboratory Last Values Urine pH (Auto) 6.0 06/24/24 15:32 Specific [place] (Auto) 1.030 06/24/24 15:32 Urine Protein (Auto) 15 mg/dL 06/24/24 15:32 Glucose (UA)(Auto) 0 mg/dL 06/24/24 15:32 Urine Blood (Auto) 25 Tapan/uL 06/24/24 15:32 Urine Bilirubin (Auto) 0 mg/dL 06/24/24 15:32 Urine Urobilinogen (Auto) 0.2 mg/dL 06/24/24 15:32 Leukocyte Esterase (Auto) 0 Iban/uL 06/24/24 15:32 Date of Service: 04/29/24 Procedure(s): CT abdomen pelvis wo IV con FINDINGS: LOWER CHEST: The visualized lung bases are clear. There is no pleural effusion. CARDIOVASCULATURE: The heart is normal in size. There is no pericardial effusion. LIVER: The liver is normal in size and contour. The liver has an unremarkable unenhanced appearance. GALLBLADDER / BILE DUCTS: The gallbladder is unremarkable. There is no intra or extrahepatic biliary ductal dilatation. SPLEEN: The spleen is normal in size and has an unremarkable unenhanced appearance. PANCREAS: The pancreas has an unremarkable unenhanced appearance. ADRENAL GLANDS: Unremarkable. KIDNEYS/RETROPERITONEUM: There is a punctate nonobstructing calculus at the upper pole of the right kidney. There is a 6 mm nonobstructing calculus at the lower pole of the left kidney. There is no hydronephrosis or hydroureter. No ureteral calculi are identified. LYMPH NODES: No retroperitoneal lymphadenopathy is identified in the abdomen or pelvis. VASCULATURE: The abdominal aorta is normal in caliber. MESENTERY/PERITONEUM: No free fluid. No masses. There is no free intraperitoneal gas. STOMACH: There is a moderate hiatal hernia. SMALL BOWEL: The small bowel is normal in caliber. COLON: There is diffuse colonic diverticulosis without evidence of diverticulitis. There is a large amount of stool throughout the colon. APPENDIX: Normal. URINARY BLADDER/PELVIC ORGANS: The urinary bladder is unremarkable. The prostate is normal in size. BONES / SOFT TISSUES: No suspicious bony or soft tissue abnormalities. IMPRESSION: 1. Bilateral nephrolithiasis as described, without evidence of ureteral obstruction. 2. Moderate hiatal hernia. 3. Colonic diverticulosis without evidence of diverticulitis. Large amount of stool throughout the colon. Assessment & Plan Assessment & Plan (1) Nephrolithiasis: Code(s): N20.0 - Calculus of kidney Category: Medical (2) Flank pain: Code(s): R10.9 - Unspecified abdominal pain Category: Medical Plan: Plan Extracorporeal Shock Wave Lithotripsy We discussed the nature of the decision and reasonable alternatives for performing the above surgery. Interventions include chemical dissolution, ESWL, ureteroscopy with laser lithotripsy and stent placement, PCNL. ? Options such as medical therapy were discussed. The relative uncertainties and benefits related to each alternate procedure were adequately discussed. General surgical risks including, but not limited to, pain, bleeding, infection, myocardial infarction, pulmonary embolus, deep vein thrombosis and cerebrovascular accident which may result in further hospitaliz ation were discussed.? Full disclosure of the procedure as well as all major risks, benefits and complications were discussed including but not limited to risks of bleeding, injury to the kidney with hematoma or jennifer-hematoma, failure to fragments stone, potential for ureteric obstruction from stone passage and need for secondary procedures.? There is a small long-term risk of hypertension and a question mayito of diabetes.? Success rate of fragmentation and passage is approximately 70- 75%.? This is compared to the risks and benefits for ureteroscopy which has a higher success rate but is a more invasive procedure. The success rate of the procedure was discussed. Success of the procedure in the short-term does not necessarily guarantee that long-term success will be maintained. Suitable follow up will need to be maintained. The patient showed understanding of the discussion as well as the typical recovery time, and the outpatient nature of this procedure. Opportunity was given for questions. Repeat-back protocol used to confirm understanding. They wish to proceed with left ESWL Plan In office urinalysis results with the patient today; as noted above. Recent CT results with the patient today; as noted above. We discussed at length further treatment options of nephrolithiasis to include surveillance monitoring with near future metabolic workup as well as ESWL; risks and benefits were discussed. All questions were answered. He denies any bothersome urinary issues. Discussed, educated, and stressed the importance of adequate hydration relation to nephrolithiasis as well as overall health and well-being. Will schedule for left-sided ESWL Follow-up per doctor's orders; or sooner with any issues, concerns, and or ques tions. Orders: Orders Urine Cytology Today Z13.9 - Encounter for screening, unspecified AMB Urinalysis Automated Today Z13.9 - Encounter for screening, unspecified Medications: Discontinued ondansetron Discontinued Reason: Patient no longer taking 4 mg PO Q8H PRN 20 tabs 0RF nausea and vomiting tamsulosin Discontinued Reason: Patient no longer taking 0.4 mg PO DAILY 5 days 5 caps 0RF cefuroxime axetil Discontinued Reason: Patient no longer taking 250 mg PO BID 19 tabs 0RF polyethylene glycol 3350 (Miralax) Discontinued Reason: Patient no longer taking 17 grams PO DAILY PRN 14 ea 0RF constipation docusate sodium (Dulcolax Stool Softener (docusate)) Discontinued Reason: Patient no longer taking 100 mg PO DAILY 10 caps 0RF lidocaine 5% (Lidoderm) leave on most painful area for up to 12 hrs Discontinued Reason: Patient no longer taking 1 patch topical DAILY 15 ea 0RF Patient Instructions: The patient had an opportunity to ask questions regarding the treatment plan. All questions were answered. Physical exam, labs, and imaging were discussed and reviewed in detail. As well as risks, benefits, and discussion of treatment choices. No major barriers to understanding were identified. The patient expressed understanding and agreement with the above treatment plan. The patient was made aware they should contact our office by phone for worsening of their current condition, the appearance of new symptoms, or with any questions or concerns. Compliance is encouraged with any medications and follow up testing that is ordered. It is a privilege to be allowed the opportunity to participate in? your urological care.? Again, if you have any questions or concerns If you have any questions or concerns please do not hesitate to contact me. The office is [phone]. This note is constructed using voice recognition software. While every effort has been made to ensure accuracy board winder errors may have been included. Yours sincerely, CAITLIN Lemus Coding Level of Care Code New Pt Level 4 (62023) Diagnoses Nephrolithiasis N20.0 Flank pain R10.9
--- OUTSIDE RECORDS SUMMARY | 2024-06-24 18:16 | XMS_ITS | Clinical Summary ---
Author Organization [facility] it Address [address] [place] [address] Care Team Providers Care Practical Nursing Teacher Name Role Phone Elisa Mann MD Primary Care Provider [phone] Surgical History Surgery Date Site/Laterality Comments OTHER SURGICAL HISTORY PROCEDURE: DENIES PREVIOUS SURGERY COLONOSCOPY 09/27/2021 PROCEDURE: HISTORICAL COLONOSCOPY; COMMENT: hyperplastic polyp ESOPHAGOGASTRODUODENOSCOPY 02/02/2022 PROCEDURE: WI EGD TRANSORAL BIOPSY SINGLE/MULTIPLE; COMMENT: hiatal hernia, biopsy + H.pylori gastritis Medical History Medical History Date Comments ALTHEA (obstructive sleep apnea) DX :ALTHEA (obstructive sleep apnea) Tobacco abuse 01/30/2012 DX:Tobacco abuse Raynaud's disease without gangrene 10/04/2016 DX:Raynaud's disease without gangrene; COMMENT: Following with rheumatology Esophageal reflux DX:Esophageal reflux Constipation DX:Constipation Rectal bleeding DX:Rectal bleedi ng Functional dyspepsia DX:Function al dyspepsia Gastritis, Helicobacter pylori D X:Gastritis, Helicobacter pylori Hiatal hernia DX:Hiatal hernia Dysphagia DX:Dysphagia Bacterial infection due to H. pylori DX:Bacterial infection due to H. pylori Family History Medical History Relation Name Comments Diabetes Brother 1 Asthma Daughter 1 Depression Daughter 2 Other: heart disease Father Cataracts Mother Depression Mother Glaucoma Mother Other: althea Son also with asthm a Blindness Neg Hx Macular degeneration Neg Hx Strabismus Neg Hx Relation Name Status Comments Brother 1 Alive Brother 2 Alive Brother 3 Alive Daughter 1 Alive Daughter 2 Alive Father Mother Sister 1 Alive Sister 2 Alive Sister 3 Alive Son Alive Social History Tobacco Use Types Packs/Day Years Used Date Smoking Tobacco: Every Day Smokeless Tobacco: Never Alcohol Use Standard Drinks/Week Comments Yes 0 (1 standard drink = 0.6 oz pur e alcohol) Sex and Gender Information Value Date Recorded Sex Assigned at Not on file Legal Sex Male 3:14 PM EST Gender Identity Not on file Sexual Orientation Not on file Obstetrics History Last Filed Vital Signs Vital Sign Reading Time Taken Comments Blood Pressure 116/80 08/15/2023 3:15 PM EDT Pulse 78 08/15/2023 3:15 PM EDT Temperature - - Respiratory Rate - - Oxygen Saturation - - Inhaled Oxygen Concentration - - Weight 84.4 kg (186 lb) 08/15/2023 3:15 PM EDT Height 180.3 cm (5' 11 ) 02/22/2023 2:53 PM EST Body Mass Index 25.94 02/22/2023 2:53 PM EST Plan of Treatment Health Maintenance Due Date Last Done Comments Hepatitis B Vaccines (1 of 3 - 19+ 3-dose series) 12/22/1987 Pneumococcal Vaccine: 50+ Ye ars (2 of 2 - PCV) 01/29/2013 01/30/2012 Pneumococcal Vaccine: Pediat rics (0 to 5 Years) and At-Risk Patients (6 to 64 Years) (2 of 2 - PCV) 01/29/2013 01/30/2012 Zoster Vaccines (1 of 2) 2018 DTaP,Tdap,and Td Vaccines (2 - Td or Tdap) 03/20/2021 03/20/2011 Cholesterol Screening (Lipid Panel) 02/20/2022 Colorectal Cancer Screening: Colonoscopy 02/20/2022 Depression Screening 02/20/2022 HIV Screening 02/20/2022 Hepatitis C Screening 02/20/2022 Social Influencers of Health Screening 02/20/2022 COVID-19 Vaccine ( - 2023-2 5 season) 2023 Influenza Vaccine (Season Ended) 2024 HIB Vaccines Aged Out No longer eligi ble based on patient's age to complete this topic HPV Vaccines Aged Out No longer eligi ble based on patient's age to complete this topic Hepatitis A Vaccines Aged Out No long er eligible based on patient's age to complete this topic IPV Vaccines Aged Out No longer eligi ble based on patient's age to complete this topic MMR Vaccines Aged Out No longer eligi ble based on patient's age to complete this topic Meningococcal ACWY Vaccine Aged Out N o longer eligible based on patient's age to complete this topic Meningococcal B Vaccine Aged Out No l onger eligible based on patient's age to complete this topic RSV Immunization Patients Un jerri 20 months Aged Out No longer eligible b ased on patient's age to complete this topic Varicella Vaccines Aged Out No longer eligible based on patient's age to complete this topic Care Teams Practical Nursing Teacher Relationship Specialty Start Date End Date Elisa Mann MD PCP - General Internal Medicine 02/02/21
== END 2024-06-24 16:23 | disposition home or self-care (01) ==
LOC: HO.HUSH 15:20
PROVIDERS: Visit Provider Nurse Practitioner Family
DX: N20.0 Calculus of kidney (principal); R10.9 Unspecified abdominal pain; Z13.9 Encounter for screening, unspecified
CPT/HCPCS: 99204

== ENCOUNTER → 2024-08-06 06:27 | Outpatient (BNV) | payer OTHER, SELFPAY | PROVIDERS: Visit Provider Radiology Diagnostic Radiology | DX: N20.0 Calculus of kidney (principal) | CPT/HCPCS: 74018 ==

== ENCOUNTER 2024-08-06 07:08 | Day surgery (SDC) | payer OTHER, SELFPAY ==
--- OUTSIDE RECORDS SUMMARY | 2024-07-01 14:44 | XMS_ITS | Clinical Summary ---
Author Organization el? [facility] it Address [address] [place] [address] Care Team Providers Care Exercise Teacher Name Role Phone Elisa Mann MD Primary Care Provider [phone] Surgical History Surgery Date Site/Laterality Comments OTHER SURGICAL HISTORY PROCEDURE: DENIES PREVIOUS SURGERY COLONOSCOPY 09/27/2021 PROCEDURE: HISTORICAL COLONOSCOPY; COMMENT: hyperplastic polyp ESOPHAGOGASTRODUODENOSCOPY 02/02/2022 PROCEDURE: [place] EGD TRANSORAL BIOPSY SINGLE/MULTIPLE; COMMENT: hiatal hernia, [...] age to complete this topic Care Teams Exercise Teacher Relationship Specialty Start Date End Date Elisa Mann MD PCP - General Internal Medicine 02/02/21
--- NOTE | 2024-08-05 09:15 | HO.ANESPROP2 ---
HPI - Anesthesia Eval Consult details Narrative: 53yo M for Left Lithotripsy ESW PMFSH Active Problems Active Problems: All Active Problems Flank pain (Acute) Nephrolithiasis (Acute) Past Medical History Medical History (Updated 08/04/24 @ 12:24 by Kimberly Bailey RN) Bilateral nephrolithiasis H. pylori infection Gastritis Surgical History Surgical History (Updated 08/04/24 @ 12:32 by Kimberly Bailey RN) Surgical history unknown Social History Social History Patient Tobacco Use Status: Tobacco use Unknown Meds Allergies Allergy/AdvReac Type Severity Reaction Status Date / Time No Known Allergies Allergy Verified 06/24/24 16:14 Home Medications ?Medication ?Instructions ?Recorded ?Confirmed ?Last Taken ?Type No Known Home Meds 06/24/24 08/04/24 Unknown History Assessment and Plan Assessment Anesthesia Assessment: Chart Reviewed
--- NOTE | ~2024-08-06 | XR_ITS ---
EXAMINATION: XR ABDOMEN KUB CLINICAL INDICATION: stones COMPARISON: Correlated to CT dated April 29, 2024 reported bilateral nephrolithiasis. TECHNIQUE: AP view of the abdomen. FINDINGS: Punctate, 4 mm calcification overlapping the lower pole of the left kidney shadow. Abundant stool throughout the large intestine. No intestinal dilatation. No air-fluid levels. Spondylosis L5-S1. Spina bifida occulta S1. Sclerosis along the symphysis pubis. XR/XR KUB IMPRESSION: Probable 4 mm calculus, left kidney. Electronically signed by: Benny Fritz MD 08/06/2024 07:45 AM EDT
[2024-08-06 06:33] VITALS: BMI 26.2
[2024-08-06 07:45] VITALS: BP 121/74; PULSE 87; RESP 18; TEMP 36.9; O2SAT 98; BMI 26.5
[2024-08-06] MEDS: Lactated Ringers 1,000 ML 999 ML IV (07:53)
--- NOTE | 2024-08-06 08:05 | MHC.SHP ---
Pre-Procedural Eval Section A - 24 Hr Update-Section A only Date of Service: 08/06/24 The patient is an INPATIENT: No Changes since office visit: No Cold of Flu in the past 2 weeks, No New Medical Problems, No Changes in Medication and No Patient answered all questions The patient has been examined within 24 hours of the surgical procedure. The History & Physical has been completed within 30 days and I have reviewed it.: No Section B - Complete if H&P > 30 days Chief Complaint: Calculus of kidney Details of Present Illness: left lower pole Relevant Family History (Specify if Yes): No Relevant Social History: None Present Medications: see Short Stay Collaborative assessment Medical History: No relevant PMH History of Previous Operations: No relevant previous surgery Allergies: Allergies Allergy/AdvReac Type Severity Reaction Status Date / Time No Known Allergies Allergy Verified 06/24/24 16:14 Review of Systems Sugical H&P ROS: Negative: Constitution, Cardiovascular, Respiratory, Neurological, Psychiatric, Hem-Onc, Allergic/Immunologic, Gastrointestinal, Genitourinary, Musculoskeletal, Integumentary, Endocrine and Eyes/Ears/Nose/Throat Exam Surgical H&P Exam: Normal: HEENT, Normal: Heart, Normal: Lungs, Normal: Extremities, Normal: Abdomen, Normal: Skin and Normal: Neurological Plan Diagnosis/Plan: Unchanged (Left ESWL) I have reviewed the history and physical and performed a pertinent physical examination on my patient. No changes have occurred unless specified. Time Spent With Patient Time: Total time managing care of this patient today ____ minutes.
--- NOTE | 2024-08-06 08:28 | HO.ANESPROP2 ---
[facility] Active Problems Active Problems: All Active Problems Flank pain (Acute) Nephrolithiasis (Acute) Past Medical History Medical History (Updated 08/04/24 @ 12:24 by Kimberly Bailey RN) Bilateral nephrolithiasis H. pylori infection Gastritis Family History Family history of problems with anesthesia: No Surgical History Surgical History (Updated 08/04/24 @ 12:32 by Kimberly Bailey RN) Surgical history unknown History of Problems with Anesthesia: No Social History Social History Patient Tobacco Use Status: Current everyday Tobacco user Have you been hit, kicked, punched, or otherwise hurt by someone within the past year? If so, by whom?: No Are you DNR?: No Advance Directives: No Advance Directives Information Provided: Yes Meds Allergies Allergy/AdvReac Type Severity Reaction Status Date / Time No Known Allergies Allergy Verified 06/24/24 16:14 Active Medications: Current Medications Lactated Ringer's (Lr) 1,000 mls @ 100 mls/hr IVCONT .Q10H ALDAIR Home Medications ?Medication ?Instructions ?Recorded ?Confirmed ?Last Taken ?Type No Known Home Meds 06/24/24 08/04/24 Unknown History Exam Height,Weight and Vital Signs: Height 5 ft 11 in Weight 190 lb 4.143 oz Last Vital Signs Temp 98.5 F 08/06/24 07:45 Pulse 87 08/06/24 07:45 Resp 18 08/06/24 07:45 BP 121/74 08/06/24 07:45 Pulse Ox 98 08/06/24 07:45 O2 Del Method Room Air 08/06/24 07:45 Airway Mallampati Class: III TM Dist: >3cm Neck ROM: Full Loose/Missing/Broken Teeth: Yes, Upper and Lower Heart: rrr Lungs: ctab Assessment and Plan Final Anesthetic Review Family History of Problems with Anesthesia: No History of Problems with Anesthesia: No NPO: Yes ASA Class: I Final Preanesthetic Review: No Changes in Pt Med Stat, Meds/Allgs Chart Reviewed, Consent Obtained/Reviewed and Anes Risks/Benef Reviewed Patient Risk: Intermediate Procedure Risk: Low Anesthetic Plan Anesthetic Plan: GA Disposition: Standard PACU
--- NOTE | 2024-08-06 08:46 | W.PM.OPN ---
Operative Note Operative Note Date of Service: 08/06/24 Narrative: PreOperative Diagnosis: left Renal stones Post Operative Diagnosis: left Renal stones Procedure: left ESWL Surgeon: Dr Finn Meyer Anesthesia: mac/sedation Indications for procedure: The patient understands ESWL may be a staged procedure and subsequent intervention may be required based on imaging after ESWL. Quoted stone clearance rates for a solitary procedure are in the 70-80% range based primarily on stone location. They also understand there is a risk of bleeding to the kidney, infection, damage to adjacent organs, and stone migration following the procedure. - Imaging 6mm left lower pole - US Procedure optimization has been performed with IV acetaminophen given in the holding area and 1 L of lactated Ringer's to be given in order to optimize the fluid-stone interface. 20 mg of IV Lasix will be given in the last 5 minutes of the procedure to optimize stone clearance. Procedure: After informed consent was verified the patient was brought to the operating room and placed in a supine position. Anesthesia was performed per protocol. Safety pause time-out was performed. Imaging was displayed in the room and laterality confirmed. ESWL was performed. The 1st 500 shocks were performed at 60 hertz. These were performed with increasing power. Once maximum power was reached the rate was increased to 180 hertz. A total of 2500 shocks were given. Targeted imaging with ultrasound/fluoroscopy showed stone smudging suggestive of disintegration. The patient tolerated the procedure well and was transferred to the recovery area upon completion. Post procedure imaging will be organized. There was no evidence for flank discoloration.
[2024-08-06 09:13] VITALS: BP 126/72; PULSE 63; RESP 15; TEMP 36.2; O2SAT 97
[2024-08-06 09:18] VITALS: BP 116/79; PULSE 60; RESP 14; O2SAT 99
[2024-08-06 09:23] VITALS: BP 117/70; PULSE 66; RESP 16; O2SAT 95
[2024-08-06 09:28] VITALS: BP 125/68; PULSE 64; RESP 16; O2SAT 96
[2024-08-06 09:43] VITALS: BP 123/79; PULSE 65; RESP 16; TEMP 36.4; O2SAT 96
--- NOTE | 2024-08-06 10:34 | PC.NURSE ---
TEST AUTOMATION ARCHITECT USED FOR DC INSTRUCTIONS.
== END 2024-08-06 10:36 | disposition home or self-care (01) ==
PROVIDERS: Visit Provider Urology
PROC: (CPT 50590; principal; 2024-08-06 09:10)
DX: N20.0 Calculus of kidney (principal); R10.9 Unspecified abdominal pain; Z87.442 Personal history of urinary calculi; K44.9 Diaphragmatic hernia without obstruction or gangrene; K57.30 Diverticulosis of large intestine without perforation or abscess without bleeding; Z87.19 Personal history of other diseases of the digestive system; Z86.19 Personal history of other infectious and parasitic diseases
CPT/HCPCS: 50590; 74018; J0131; J1100; J1938; J2003; J2405; J2704; J3010

== ENCOUNTER → 2024-08-06 07:08 | Outpatient (BNV) | payer OTHER, SELFPAY | PROVIDERS: Visit Provider Urology | DX: N20.0 Calculus of kidney (principal) | CPT/HCPCS: 50590 ==

== ENCOUNTER 2024-09-15 14:48 | Outpatient (REF) | payer OTHER, SELFPAY ==
--- NOTE | ~2024-09-15 | US_ITS ---
EXAMINATION: Ultrasound renal bilaterally. CLINICAL INFORMATION: Calculus of the kidney. COMPARISON: Correlated to CT dated April 29, 2024. TECHNIQUE: Real-time ultrasound kidneys using grayscale technique. FINDINGS: Right kidney: 11 x 5 x 4 cm. Volume: 190 cc. Normal echotexture. Normal renal cortical thickness. No hydronephrosis. No solid or cystic lesion. Left kidney: 12 x 6 x 4 cm. Volume: 142 cc. Normal echotexture. Normal renal cortical thickness. No hydronephrosis. 4 mm hyperechoic structure in the lower pole. No gross solid or cystic lesion. US/US renal BI IMPRESSION: 4 mm nonobstructing calculus, left kidney. Electronically signed by: Benny Fritz MD 09/15/2024 03:44 PM EDT
--- OUTSIDE RECORDS SUMMARY | 2024-09-15 15:16 | XMS_ITS | Clinical Summary ---
Author Organization [facility] it Address [address] [place] [address] Care Team Providers Care Manager Animal Name Role Phone Elisa Mann MD Primary Care Provider [phone] Surgical History Surgery Date Site/Laterality Comments OTHER SURGICAL HISTORY PROCEDURE: DENIES PREVIOUS SURGERY COLONOSCOPY 09/27/2021 PROCEDURE: HISTORICAL COLONOSCOPY; COMMENT: hyperplastic polyp ESOPHAGOGASTRODUODENOSCOPY 02/02/2022 PROCEDURE: [place] EGD TRANSORAL BIOPSY SINGLE/MULTIPLE; COMMENT: hiatal hernia, [...] age to complete this topic Care Teams Manager Animal Relationship Specialty Start Date End Date Elisa Mann MD PCP - General Internal Medicine 02/02/21
== END 2024-09-15 14:49 | disposition home or self-care (01) ==
LOC: HO.US 14:48
PROVIDERS: Visit Provider Urology
DX: N20.0 Calculus of kidney (principal); R10.9 Unspecified abdominal pain
CPT/HCPCS: 76775

== ENCOUNTER → 2024-09-15 14:50 | Outpatient (BNV) | payer OTHER, SELFPAY | PROVIDERS: Visit Provider Radiology Diagnostic Radiology | DX: N20.0 Calculus of kidney (principal) | CPT/HCPCS: 76775 ==

== ENCOUNTER 2024-09-24 14:56 | Outpatient (AMB) | payer OTHER, SELFPAY ==
--- NOTE | 2024-09-24 14:57 | A.OFFVIS_ITS ---
Intake Visit Reasons: Greenlight laser follow up/US Intake Note: New Patient presents for initial follow up green light laser Urology Medications: none Blood Thinner: none PVR:0 mls Coat Fitter Required: Yes Accompanied by: Spouse Allergies No Known Allergies Allergy (Verified 09/24/24 15:07) HPI Comments Details: Yariel is a pleasant [place]-speaking male. He is seen for the following urologic conditions - nephrolithiasis Follow-up from ESWL left side Imaging shows small fragment Reassurance provided regarding reported back discomfort that runs down to his leg Highly probable related to musculoskeletal issues Nephrolithiasis Post longstanding history of recurrence Imaging - 05/13 CT scan 6 mm lower pole left kidney stone - 08/10 ultrasound 3 mm left lower pole stone Intervention - 08/10 left ESWL Encourage hydration Start vitamin B6 Six-month follow-up imaging [facility] Medical History (Updated 08/04/24 @ 12:24 by Kimberly Bailey RN) Bilateral nephrolithiasis H. pylori infection Gastritis Surgical History (Updated 08/04/24 @ 12:32 by Kimberly Bailey RN) Surgical history unknown Social History Patient Tobacco Use Status: Current everyday Tobacco user Review of Systems Const Denies chills and Denies fever(s) Card Reports no additional complaints and Denies syncope Resp Denies cough GI Denies abdominal pain and Denies heartburn Reports as per HPI and Denies change in libido Neuro Denies syncope Psych Denies change in libido Endo Denies change in libido Physical Exam Const General: cooperative, healthy appearing, comfortable and no acute distress Orientation/consciousness: patient oriented x3 HEENT Face and sinus: Yes normal facial exam Mouth: moist mucous membranes Neck Neck: Yes normal visual inspection, Yes full ROM and Yes trachea midline Chest Chest palpation & inspection: normal inspection of the chest Resp Effort & Inspection: normal respiratory effort, able to speak in complete sentences and no respiratory distress GI Inspection: Yes normal to inspection Back/Spine/Pelvis Cervical Spine: normal cervical lordosis Thoracic/Lumbar Spine: thoracic and lumbar spine normal to inspection Skin General skin exam: no rashes or lesions noted Neuro General: patient oriented x3, gait normal, tone normal and moves all extremities Extrem General: Yes normal to inspection and Yes capillary refill normal Assessment & Plan Assessment & Plan (1) Nephrolithiasis: Code(s): N20.0 - Calculus of kidney Category: Medical Plan Six-month follow-up imaging Start B6 Orders: Orders US renal BI 6 Months N20.0 - Calculus of kidney Medications: New pyridoxine (vitamin B6) 50 mg PO DAILY 90 tabs 1RF 90 days N20.0 - Calculus of kidney Patient Instructions: This note is constructed using voice recognition software. While every effort has been made to ensure accuracy parts identifier errors may have been included. Imaging studies, laboratory and physical exam results were discussed and reviewed in detail. No major barriers to patient understanding were identified. An opportunity to ask questions regarding the treatment plan was provided. All questions were answered. The patient expressed understanding and agreement with the above treatment plan. The patient is aware they should contact our office by phone for worsening of their current condition or the appearance of new urologic symptoms. Compliance is encouraged with any medications and followup testing that is ordered. It is a privilege to participate in the urologic care of your patient. If you have any questions or concerns regarding treatment for the above conditions, or other urologic issues, please do not hesitate to contact me. The office telephone contact is [phone]. Sincerely, Dr Finn Meyer MD, [facility] - Urology Compassionate Specialist Care for the Genitourinary System Coding Level of Care Code Est Pt Level 3 (43169) Complex EM visit Add On G2211 Diagnoses Nephrolithiasis N20.0
--- OUTSIDE RECORDS SUMMARY | 2024-09-24 15:24 | XMS_ITS | Clinical Summary ---
Author Organization [employer] [facility] it Address [address] [place] [address] Care Team Providers Care Fire Equipment Inspector Helper Name Role Phone Elisa Mann MD Primary Care Provider [phone] Surgical History Surgery Date Site/Laterality Comments OTHER SURGICAL HISTORY PROCEDURE: DENIES PREVIOUS SURGERY COLONOSCOPY 09/27/2021 PROCEDURE: HISTORICAL COLONOSCOPY; COMMENT: hyperplastic polyp ESOPHAGOGASTRODUODENOSCOPY 02/02/2022 PROCEDURE: [place] EGD TRANSORAL BIOPSY SINGLE/MULTIPLE; COMMENT: hiatal hernia, [...] 5 Years) and At-Risk Patients (6 to 49 Years) (2 of 2 - PCV) 01/29/2013 01/30/2012 Zoster Vaccines (1 of 2) 2018 DTaP,Tdap,and Td Vaccines (2 - Td or Tdap) 03/20/2021 03/20/2011 Cholesterol Screening (Lipid Panel) 02/20/2022 Colorectal Cancer Screening: Colonoscopy 02/20/2022 Depression Screening 02/20/2022 HIV Screening 02/20/2022 Hepatitis C Screening 02/20/2022 Social Influencers of Health Screening 02/20/2022 COVID-19 Vaccine (1 - 2023-2 5 season) 2023 Influenza Vaccine (#1) 2024 HIB Vaccines Aged Out No longer [...] age to complete this topic Care Teams Fire Equipment Inspector Helper Relationship Specialty Start Date End Date Elisa Mann MD PCP - General Internal Medicine 02/02/21
== END 2024-09-24 15:42 | disposition home or self-care (01) ==
LOC: HO.HUSH 14:57
PROVIDERS: Visit Provider Urology
DX: N20.0 Calculus of kidney (principal)
CPT/HCPCS: 99024

== ENCOUNTER → 2024-09-24 14:56 | Outpatient (BNVA) | payer OTHER, SELFPAY | PROVIDERS: Visit Provider Urology | DX: N20.0 Calculus of kidney (principal) | CPT/HCPCS: 99212 ==

== ENCOUNTER 2025-03-16 14:53 | Outpatient (REF) | payer OTHER, SELFPAY ==
--- NOTE | ~2025-03-16 | US_ITS ---
EXAMINATION: US RETROPERITONEAL LIMITED (RENAL ONLY) CLINICAL INFORMATION: Calculus of kidney.. COMPARISON: 09/15/2024. CT exam 04/29/2024. TECHNIQUE: Real-time imaging of the kidneys. FINDINGS: RIGHT KIDNEY: 10.9 x 5.4 x 5.2 cm (SAG x AP x TRV). The kidney is normal in size, contour, and echogenicity. Renal cortical thickness is normal. No calculi or focal parenchymal lesions. No hydronephrosis. LEFT KIDNEY: 11.7 x 5.0 x 4.7 cm (SAG x AP x TRV). The kidney is normal in size, contour, and echogenicity. Renal cortical thickness is normal. No focal parenchymal lesions. No hydronephrosis. There is a lower pole calculus measuring 4 x 2 x 4 mm. US/US renal BI IMPRESSION: 1. There is a left kidney lower pole nonobstructing calculus measuring 4 mm. 2. There is no hydronephrosis of either kidney. Electronically signed by: Hernandez Morton MD 03/16/2025 03:55 PM EST
--- OUTSIDE RECORDS SUMMARY | 2025-03-16 17:13 | XMS_ITS ---
[facility] Organization [facility] Care Team Organization Name Specialty Phone Email Start Date End Da te [facility] Primary Care 01/24/2022 11/05/19 24
--- OUTSIDE RECORDS SUMMARY | 2025-03-16 17:13 | XMS_ITS | Clinical Summary ---
Author Organization [facility] it Address [address] [place] [address] Care Team Providers Care Lining Parts Sewer Name Role Phone Elisa Mann MD Primary Care Provider [phone] Surgical History Surgery Date Site/Laterality Comments OTHER SURGICAL HISTORY PROCEDURE: DENIES PREVIOUS SURGERY COLONOSCOPY 09/27/2021 PROCEDURE: HISTORICAL COLONOSCOPY; COMMENT: hyperplastic polyp ESOPHAGOGASTRODUODENOSCOPY 02/02/2022 PROCEDURE: [place] EGD TRANSORAL BIOPSY SINGLE/MULTIPLE; COMMENT: hiatal hernia, [...] on file Sexual Orientation Not on file Last Filed Vital Signs Vital Sign Reading [...] Health Maintenance Due Date Last Done Comments Colorectal Cancer Screening: Colonoscopy 1968 Hepatitis B Vaccines (1 of 3 - 19+ 3-dose series) 12/22/1987 Pneumococcal Vaccine: 50+ Ye ars (2 of 2 - PCV) 01/29/2013 01/30/2012 Zoster Vaccines (1 of 2) 2018 DTaP,Tdap,and Td Vaccines (2 - Td or Tdap) 03/20/2021 03/20/2011 Cholesterol Screening (Lipid Panel) 02/20/2022 HIV Screening 02/20/2022 Hepatitis C Screening 02/20/2022 Social Influencers of Health Screening 02/20/2022 Depression Screening 03/19/2024 COVID-19 Vaccine (1 - 2024-2 6 season) 2024 Influenza Vaccine (#1) 2024 RSV Immunization Adult Patie nts (1 - 1-dose 75+ series) 12/22/2043 HIB Vaccines Aged Out No longer eligi [...] age to complete this topic Care Teams Lining Parts Sewer Relationship Specialty Start Date End Date Elisa Mann MD PCP - General Internal Medicine 02/02/21
== END 2025-03-16 14:54 | disposition home or self-care (01) ==
LOC: HO.US 14:53
PROVIDERS: Visit Provider Urology
DX: N20.0 Calculus of kidney (principal)
CPT/HCPCS: 76775

== ENCOUNTER → 2025-03-16 14:57 | Outpatient (BNV) | payer SELFPAY | PROVIDERS: Visit Provider Radiology Diagnostic Radiology | DX: N20.0 Calculus of kidney (principal) | CPT/HCPCS: 76775 ==